=== PATIENT | female | born 1970 | race Caucasian/White ===

== ENCOUNTER → 2017-02-07 | Outpatient (CLI) | payer BC ==
--- NOTE | 2017-02-07 17:21 | PCVCIMAG ---
APPROVED REPORT Exam: Stress Echocardiogram Indication: Palpitations , tachycardia Patient Location: Echo lab Stress Nurse: Vika Sumner RN Room #: 2 Status: routine Ht: 5 ft 6 in HR: 109 bpm BP: 138/68 mmHg Rhythm: Sinus Tachycardia Medical History Medical History: palpitations Previous Cardiac Procedures: none Procedure The patient underwent an Exercise Stress Test using the Brandon Protocol. Blood pressure, heart rate, and EKG were monitored. An Echocardiogram was performed by pv design and installation technician in four stages in quad fashion. At peak stress, four selected images were obtained and placed side by side with resting images for comparison. Stress Test Details Stress Test: Exercise stress testing was performed using a Brandon protocol. HR Resting HR: 109 bpmMax Heart Rate (APMHR): 172 bpm Max HR Achieved: 164 bpmTarget HR (85% APMHR): 146 bpm % of APMHR: 95 Recovery HR: 103 bpm HR response to stress: Normal HR response to stress, mildly elevated at rest BP Resting BP: 116/82 mmHg Max BP: 146/72 mmHg Recovery BP: 102/78 mmHg ECG Resting ECG: Sinus Rhythm Stress ECG: Sinus Rhythm ST Change: Upsloping ST depression, Non-ischemic Maximum ST Deviation: 0.55 mm Arrhythmia: Rare PVCs Recovery ECG: Sinus Rhythm Recovery ST Change: Non-ischemic Recovery Arrhythmia: rare PVCs Clinical Reason for Termination: Maximal effort Stress Symptoms: none Exercise duration: 7 min sec Highest Stage Achieved: Stage 3: 3.4 mph at 14% grade. Exercise capacity: 10.1 METs Overall Exercise Capacity for Age: Poor Angina Score: None Stress ECG Conclusion The patient exercised according to the Brandon Protocol for 7:00 minutes, achieving a maximum work level of 10.1 METS. The resting heart rate of 109 bpm, mayra to a maximal level of 164 bpm. This value represents 96 % of the maximal, age-predicted heart rate. The resting blood pressure o116/82 mmHg, mayra to a maximum blood pressure of 146/72 mmHg. The exercise was stopped due to fatigue. Gipson Treadmill Score is 4.3 which is Moderate risk. Pre-Stress Echo The resting Echocardiogram showed normal left ventricular contractility with an estimated Ejection Fraction of about 55-60%. Normal wall motion in all segments on baseline images. Post-Stress Echo The stress Echocardiogram showed normal left ventricular contractility with an estimated Ejection Fraction of about 65-70%. Normal augmentation of wall motion in all segments on post stress images. Clinical No clinical or ECG evidence for ischemia. Conclusion Clinical Response: Non-ischemic Exercise Capacity: Average Stress ECG Response: Non-ischemic Stress Echo Images: Non-ischemic No clinical, EKG or echocardiographic evidence for ischemia. No echocardiographic evidence for exercise induced ischemia. Normal stress echocardiogram with maximal exercise stress. <Conclusion> No clinical, EKG or echocardiographic evidence for ischemia. No echocardiographic evidence for exercise induced ischemia. Normal stress echocardiogram with maximal exercise stress.
== END | disposition home or self-care (01) ==
LOC: PCVCIMAG 15:52
PROVIDERS: ATTEND Internal Medicine Cardiovascular Disease
DX: R00.2 Palpitations (principal); R00.0 Tachycardia, unspecified; R07.89 Other chest pain
CPT/HCPCS: 93325; 93351